=== PATIENT | female | born 1935 | race Two or more races ===

== ENCOUNTER 2020-03-09 19:05 | Emergency (ER) | payer OTHER ==
[~2020-03-09] VITALS: Ht 160 cm; Wt 93.9 kg
[~2020-03-09 19:05] MED LIST: ADVAIR 2501 DISK W/1 IH; ALPRAZOLAM2 MG; CARDIOVID PLUS1 CAP; CATAFLAM50 MG; CELEBREX50 MG; COUMADIN1 MG; ECOTRIN81 MG; HYZAAR 100-251 UDTAB; IMDUR60 MG; IOPHEN DM-100 MG/5 M PO; LASIX20 MG; LIPITOR20 MG; MEDROLPACK PO; MUCINEX1200 MG/BO PO; NEURONTIN600 MG; PROVENTIL3 ML/2.5 M IH; SINGULAIR 10MG10 MG PO; SINGULAIR10 MG; XARELTO10 MG; ZITHROMAX500 MG PO
[2020-03-09] MEDS ORDERED: REMERON15 MG (19:13)
[2020-03-09] MEDS ORDERED: SOLARAZE100 GM (19:13)
[2020-03-09] MEDS ORDERED: DECADRON0.5 MG (19:14)
== END 2020-03-09 22:34 | disposition home or self-care (01) ==
LOC: ER 19:05
DX: S22.43XA Multiple fractures of ribs, bilateral, initial encounter for closed fracture (principal); K62.5 Hemorrhage of anus and rectum; W18.09XA Striking against other object with subsequent fall, initial encounter; Y93.89 Activity, other specified; Y92.098 Other place in other non-institutional residence as the place of occurrence of the external cause; Y99.8 Other external cause status; Z20.828 Contact with and (suspected) exposure to other viral communicable diseases